=== PATIENT | male | born 1965 ===

== ENCOUNTER 2022-03-20 22:44 | Emergency (ER) | payer SELFPAY ==
[2022-03-20] MEDS ORDERED: oxyCODONE /ACETAMINOPHEN 5-325MG TAB PO ONE (23:43)
--- NOTE | 2022-03-20 23:57 | XRay Report ---
RIGHT HAND 3 VIEW(S) INDICATION / CLINICAL INFORMATION: injury COMPARISON: None available. FINDINGS: BONES / JOINT(S): No acute fracture or subluxation. SOFT TISSUES: No significant abnormality. ADDITIONAL FINDINGS: None. IMPRESSION: 1. No acute fracture. No significant abnormality. Signer Name: Zurdo Noble II, MD Signed: 03/20/2022 11:52 PM Workstation Name: [id number]
[2022-03-21] MEDS ORDERED: ceFAZolin 1 GM VIAL IM ONE
--- NOTE | 2022-03-21 00:19 | Emergency Department Report ---
ED Upper Extremity Inj HPI - General Chief Complaint: Extremity Injury, Upper Stated Complaint: FINGER BROKE Time Seen by Provider: 03/20/22 23:43 Source: patient Mode of arrival: Ambulatory Limitations: Language Barrier - History of Present Illness Complaint: Injury to:: right, finger -: Sudden Other Extremity Injury: Fingers: Right Other Injuries: none Handedness: right Place: home Improves With: none Worsens With: movement of extremity Context: fall, other (Was playing volleyball and fell forward with his finger striking the ground. Once his finger struck the ground he brought his hand that He noticed a deformity with the development displaced he quickly relocated the fingers by manipulation but but developed pain and swelling so came to emerge depart) - Related Data Previous Rx's Medication Instructions Recorded Last Taken Type Ketorolac [Toradol] 10 mg PO Q6H PRN #14 03/21/22 Unknown Rx cephALEXin [Keflex] 500 mg PO Q8HR #30 cap 03/21/22 Unknown Rx Allergies Allergy/AdvReac Type Severity Reaction Status Date / Time No Known Allergies Allergy Unverified 03/20/22 23:03 ED Review of Systems ROS: Stated complaint: FINGER BROKE Other details as noted in HPI Comment: All other systems reviewed and negative ED Past Medical Hx - Medications Home Medications: Home Medications Medication Instructions Recorded Confirmed Last Taken Type Ketorolac [Toradol] 10 mg PO Q6H PRN #14 03/21/22 Unknown Rx cephALEXin [Keflex] 500 mg PO Q8HR #30 cap 03/21/22 Unknown Rx ED Physical Exam - General Limitations: Language Barrier General appearance: alert, in no apparent distress - Head Head exam: Present: atraumatic, normocephalic - Eye Eye exam: Present: normal appearance, PERRL, EOMI Pupils: Present: normal accommodation - ENT ENT exam: Present: normal exam, normal orophraynx, mucous membranes moist, TM's normal bilaterally - Neck Neck exam: Present: normal inspection, full ROM - Respiratory Respiratory exam: Present: normal lung sounds bilaterally. Absent: respiratory distress - Cardiovascular Cardiovascular Exam: Present: regular rate, normal rhythm. Absent: systolic murmur, diastolic murmur, rubs, gallop - GI/Abdominal GI/Abdominal exam: Present: soft, normal bowel sounds - Rectal Rectal exam: Present: deferred - Extremities Exam Extremities exam: Present: normal inspection, tenderness, joint swelling - Expanded Upper Extremity Exam Right Hand Wrist exam: Present: tenderness, swelling. Absent: erythema, nail avulsion, subungual hematoma Hand L/R Front: 1 - Positive: laceration (2 cm) Hand L/R Back: 1 - Tenderness to this region. Mild swelling noted - Back Exam Back exam: Present: normal inspection - Neurological Exam Neurological exam: Present: alert, oriented X3 - Psychiatric Psychiatric exam: Present: normal affect, normal mood - Skin Skin exam: Present: warm, dry, intact, normal color. Absent: rash ED Course Vital Signs 03/20/22 23:02 Temperature 98.1 F Pulse Rate 89 Respiratory 16 Rate Blood Pressure 128/78 O2 Sat by Pulse 96 Oximetry ED Medical Decision Making - Radiology Data Radiology results: report reviewed [facility] [address] [place] [address] XRay Report Signed Patient: TOMMY SHAHID MR#: [id number] : 1965 Acct:[id number] Age/Sex: 56 / M ADM Date: 03/20/22 Loc: ED Attending Dr: Ordering Physician: ALESSANDRO WARREN MD Date of Service: 03/20/22 Procedure(s): XR hand 3+V RT Accession Number(s): [id number] cc: ALESSANDRO WARREN MD Fluoro Time In Minutes: RIGHT HAND 3 VIEW(S) INDICATION / CLINICAL INFORMATION: injury COMPARISON: None available. FINDINGS: BONES / JOINT(S): No acute fracture or subluxation. SOFT TISSUES: No significant abnormality. ADDITIONAL FINDINGS: None. IMPRESSION: 1. No acute fracture. No significant abnormality. Signer Name: Main Ly II, MD Signed: 03/20/2022 11:52 PM Workstation Name: [id number] Transcribed By: MENDOZA Dictated By: MAIN LY II, MD Electronically Authenticated By: MAIN LY II, MD Signed Date/Time: 03/20/222351 DD/ 51 TD/TT: Critical care attestation.: If time is entered above; I have spent that time in minutes in the direct care of this critically ill patient, excluding procedure time. ED Disposition Clinical Impression: Finger laceration, Finger strain, History of dislocation Disposition: HOME / SELF CARE / HOMELESS Is pt being admited?: No Does the pt Need Aspirin: No Condition: Stable Instructions: Laceration Care, Adult, Sutured Wound Care Additional Instructions: Sutures placed in arm are dissolvable please follow-up with And 3 to 5 days to evaluate the wound for any signs of infection Prescriptions: cephALEXin [Keflex] 500 mg PO Q8HR #30 cap Ketorolac [Toradol] 10 mg PO Q6H PRN #14 PRN Reason: Pain Referrals: [facility] [Provider Group] - 3-5 Days
[2022-03-21 01:09] VITALS: BP 130/70
== END 2022-03-21 01:18 | disposition home or self-care (01) ==
LOC: ED 22:44
DX: S61.212A Laceration without foreign body of right middle finger without damage to nail, initial encounter (principal); S61.214A Laceration without foreign body of right ring finger without damage to nail, initial encounter; S56.415A Strain of extensor muscle, fascia and tendon of right ring finger at forearm level, initial encounter; S56.413A Strain of extensor muscle, fascia and tendon of right middle finger at forearm level, initial encounter; S63.252A Unspecified dislocation of right middle finger, initial encounter; S63.254A Unspecified dislocation of right ring finger, initial encounter; W19.XXXA Unspecified fall, initial encounter; Y93.89 Activity, other specified; Y92.89 Other specified places as the place of occurrence of the external cause; Y99.8 Other external cause status
CPT/HCPCS: 73130; 96372; 99283; J0690